=== PATIENT | female | born 1950 | race Caucasian/White ===

== ENCOUNTER 2021-09-16 06:16 | Emergency (ER) | payer OTHER, SELFPAY ==
[2021-09-16 06:31] VITALS: BP 149/74; PULSE 67; RESP 18; TEMP 36.7; O2SAT 100; BMI 23.4
--- NOTE | 2021-09-16 06:40 | DI.RAD.S_ITS ---
PROCEDURE: XR RIBS LT MIN 3V W CXR1V INDICATIONS: pain TECHNIQUE: 2 views of the left ribs were acquired, along with a single view chest. COMPARISON: None. FINDINGS: Surgical changes and devices: None. Bones and chest wall: No fractures or dislocations. No suspicious bony lesions. Overlying soft tissues appear unremarkable. Lungs and pleura: No pleural effusions or pneumothorax. Lungs appear clear. Mediastinum: Mediastinal contours appear normal. Heart size is normal. IMPRESSION: No displaced rib fractures. Dictated by: Yandy Hernandez M.D. on 09/16/2021 at 8:52 Approved by: Yandy Hernandez M.D. on 09/16/2021 at 8:53
[2021-09-16 06:42] VITALS: PULSE 71; RESP 26; O2SAT 100
--- NOTE | 2021-09-16 06:46 | DI.CT.S_ITS ---
PROCEDURE: CT KIDNEY URETER BLADDER (KUB) INDICATIONS: pain left TECHNIQUE: Axial sections were acquired from the lung bases to the pubic symphysis. Coronal and sagittal reformats were performed. For radiation dose reduction, the following was used: automated exposure control, adjustment of mA and/or kV according to patient size. COMPARISON: None. FINDINGS: Image quality: Excellent. Lung bases: There is mild platelike atelectasis at the left lung base. Heart: No significant findings. URINARY: Right Kidney: No stones or hydronephrosis. Right Ureter: No hydroureter. Left Kidney: There is mild left pelviectasis. No hydronephrosis. No perinephric fat stranding. Left Ureter: No hydroureter. Bladder calculi. ABDOMEN: Liver: Unremarkable. Gallbladder: Unremarkable. Biliary ducts: Unremarkable. Pancreas: Unremarkable. Spleen: Unremarkable. Adrenal Glands: Unremarkable. Stomach and Bowel: Stomach, small bowel loops, and colon are unremarkable. The appendix is not visualized; however there is no discrete right lower quadrant fluid or fat stranding to suggest acute appendicitis. Peritoneum: No abnormal intraperitoneal fluid. No free air. Ventral Wall: No hernia. Abdominal Nodes: No enlarged retroperitoneal or mesenteric lymph nodes. Vessels: Aorta and inferior vena cava are normal in size. PELVIS: Pelvic Organs: Unremarkable. Pelvic Nodes: Unremarkable. Miscellaneous: No inguinal hernias are seen. Bones: Unremarkable. IMPRESSION: 1. Mild left pelviectasis without discrete hydronephrosis, hydroureter, nephrolithiasis, or ureterolithiasis. No bladder calculi visualized to suggest recently passed stone. The bladder is markedly distended with urine. Bladder outlet obstruction cannot be excluded. Dictated by: Martha Garner M.D. on 09/16/2021 at 8:17 Approved by: Martha Garner M.D. on 09/16/2021 at 8:25
[2021-09-16 06:49] LABS: Add Manual Diff / Slide Review NO; Basophils Absolute Auto 0 /uL (0-100); Basophils Percent Auto 0.9 % (0-2); Eosinophils Absolute Auto 300 /uL (0-450); Eosinophils Percent Auto 7.5 % (2-4); Hemoglobin 13.3 g/dL (12.0-16.0); Lymphocytes Absolute Auto 1700 /uL (1100-4500); Lymphocytes Percent Auto 37.3 % (25-40); Mean Corpuscular HGB Conc 33.2 % (30-36); Mean Corpuscular Hemoglobin 29.5 PG (26-34); Mean Corpuscular Volume 88.8 fL (80-100); Monocytes Absolute Auto 400 /uL (0-900); Monocytes Percent Auto 9.2 % (3-14); Neutrophils Absolute Auto 2000 /uL (1500-7000); Neutrophils Percent Auto 45.1 % (50-75); Platelet Count 274 X10^3/uL (150-400); Red Blood Cell Count 4.51 X10^6/uL (4.0-5.2); Red Cell Distribution Width 13.6 % (11.6-14.8); White Blood Cell Count 4.5 X10^3/uL (4.5-11.0)
--- NOTE | 2021-09-16 06:52 | ED.CHESTPAIN ---
HPI - Chest Pain <Carey Powers DO - Last Filed: 09/16/21 23:01> General Chief Complaint: Chest Pain Stated Complaint: Pain left side under rib cage Time Seen by Provider: 09/16/21 06:30 Source: patient Mode of arrival: Ambulatory Limitations: no limitations History of Present Illness HPI narrative: The patient is a 71-year-old female history of hyperlipidemia presenting with left-sided flank pain. She noticed it 2 days ago. She says it hurts so bad to sleep in a rollover at night. She denies any injury. The pain is not radiating around to her abdomen. She has no nausea or vomiting. Pain is not going down into her leg. She really does not have any chest pain or discomfort. There is a pinpoint area of pain. She has not taken anything at home for pain. She denies any painful or frequent urination. No hematuria. Related Data Previous Rx's Medication Instructions Recorded oxycodone-acetaminophen 5 mg-325 1 tab PO Q6H PRN pain #14 tabs 09/16/21 mg tablet Review of Systems <Carey Powers DO - Last Filed: 09/16/21 23:01> Review of Systems Narrative: GENERAL: Denies chills, fatigue, malaise, fever, sweats, travel HEENT: Denies sinus pain, ear pain, sore throat, difficulty swallowing, neck pain RESPIRATORY: Denies dyspnea, cough, wheezing, hemoptysis, sputum. CARDIOVASCULAR: Denies chest pain, palpitations, orthopnea, edema GASTROINTESTINAL: See HPI : Denies dysuria, frequency, incontinence, hematuria, urinary retention, flank pain. MUSCULOSKELETAL: Denies weakness, joint pain, or bony pain SKIN: No rash, no erythema, no pruritus NEUROLOGIC: Denies weakness, dizziness, headache, numbness, change in speech, confusion PSYCHIATRIC: No concerning psychosocial issues. 12 point review of systems is negative except for those stated above and HPI Patient History <DO Sophie Shaw Last Filed: 09/16/21 23:01> Social History Smoking Status: Former smoker Smoking Status: Former smoker alcohol intake frequency: 0-2 drinks per day Alcohol type: wine Substance Use Type: does not use Exam <DO Sophie Shaw Last Filed: 09/16/21 23:01> Initial Vital Signs Initial Vital Signs: Vital Signs Temperature 98.1 F 09/16/21 06:31 Pulse Rate 67 09/16/21 06:31 Respiratory Rate 18 09/16/21 06:31 Blood Pressure 149/74 H 09/16/21 06:31 Pulse Oximetry 100 09/16/21 06:31 Oxygen Delivery Method 09/16/21 06:31 GENERAL: Alert 71-year-old female appears uncomfortable. HEENT: Head atraumatic,EOMI, pupils reactive, face symmetric, moist mucous membranes CARDIOVASCULAR: Regular rate and rhythm without murmurs, rubs or gallops. RESPIRATORY: Breath sounds equal bilaterally, no wheezes rales or rhonchi. ABDOMEN: Soft, nontender. Normoactive bowel sounds all 4 quadrants. No guarding or rebound. RECTAL: Hemoccult-positive, no hemorrhoids, nontender : Pain left side in point to touch no sign of trauma or injury CVA tenderness EXTREMITIES: Normal range of motion, no clubbing or edema. Neurovascularly intact NEUROLOGICAL: Alert and oriented x4.Normal gait and speech. SKIN: Warm, dry, no laceration, no petechiae, no rashes or lesions. <Khadra Reardon MD - Last Filed: 09/16/21 09:07> Initial Vital Signs Initial Vital Signs: Vital Signs Temperature 98.1 F 09/16/21 06:31 Pulse Rate 67 09/16/21 06:31 Respiratory Rate 18 09/16/21 06:31 Blood Pressure 149/74 H 09/16/21 06:31 Pulse Oximetry 100 09/16/21 06:31 Oxygen Delivery Method 09/16/21 06:31 Course <Carey Powers DO - Last Filed: 09/16/21 23:01> Orders Ordered: Discontinued Medications Ketorolac Tromethamine (Ketorolac 30 Mg/Ml Vial) 15 mg IV NOW ONE Stop: 09/16/21 06:41 Last Admin: 09/16/21 06:57 Dose: 15 mg Documented By: EB Vital Signs Vital signs: Vital Signs - 8 hr 09/16/21 06:31 09/16/21 06:42 09/16/21 07:00 Temperature 98.1 F Pulse Rate 67 71 69 Respiratory Rate 18 26 H Blood Pressure 149/74 H Pulse Oximetry 100 100 100 Oxygen Delivery Method Room Air 09/16/21 07:30 Temperature Pulse Rate 60 Respiratory Rate 12 Blood Pressure Pulse Oximetry 99 Oxygen Delivery Method <Khadra Reardon MD - Last Filed: 09/16/21 09:07> Orders Ordered: Discontinued Medications Ketorolac Tromethamine (Ketorolac 30 Mg/Ml Vial) 15 mg IV NOW ONE Stop: 09/16/21 06:41 Last Admin: 09/16/21 06:57 Dose: 15 mg Documented By: EB Vital Signs Vital signs: Vital Signs - 8 hr 09/16/21 06:31 09/16/21 06:42 09/16/21 07:00 Temperature 98.1 F Pulse Rate 67 71 69 Respiratory Rate 18 26 H Blood Pressure 149/74 H Pulse Oximetry 100 100 100 Oxygen Delivery Method Room Air 09/16/21 07:30 Temperature Pulse Rate 60 Respiratory Rate 12 Blood Pressure Pulse Oximetry 99 Oxygen Delivery Method MDM - Chest Pain <Carey Powers DO - Last Filed: 09/16/21 23:01> Lab Data Result diagrams: 09/16/21 06:35 09/16/21 06:35 Labs: Lab Results 09/16/21 09/16/21 Range/Units 06:35 06:35 WBC 4.5 (4.5-11.0) X10^3/uL RBC 4.51 (4.0-5.2) X10^6/uL Hgb 13.3 (12.0-16.0) g/dL Hct 40.0 (36-46) % MCV 88.8 (80-100) fL MCH 29.5 (26-34) PG MCHC 33.2 (30-36) % RDW 13.6 (11.6-14.8) % Plt Count 274 (150-400) X10^3/uL Neut % (Auto) 45.1 L (50-75) % Lymph % (Auto) 37.3 (25-40) % [place] % (Auto) 9.2 (3-14) % Eos % (Auto) 7.5 H (2-4) % Baso % (Auto) 0.9 (0-2) % Neut # (Auto) 2000 (6499-0360) /uL Lymph # (Auto) 1700 (6865-7168) /uL [place] # (Auto) 400 (0-900) /uL Eos # (Auto) 300 (0-450) /uL Baso # (Auto) 0 (0-100) /uL Sodium 139 (137-145) mmol/L Potassium 4.1 (3.4-5.1) mmol/L Chloride 109 H (98-107) mmol/L Carbon Dioxide 26 (22-32) mmol/L BUN 14 (7-17) mg/dL Creatinine 0.62 (0.52-1.04) mg/dL Estimated GFR > 60 (>60) mL/min BUN/Creatinine Ratio 22.6 H (6-22) Glucose 86 (80-110) mg/dL Calcium 9.0 (8.4-10.2) mg/dL Total Bilirubin 0.7 (0.2-1.3) mg/dL AST 31 (14-36) IU/L ALT 21 (<35) IU/L Alkaline Phosphatase 57 (38-126) U/L Total Creatine Kinase 80 (30-135) U/L CK-MB (CK-2) TNP CK-MB (CK-2) Rel Index TNP Troponin I < 0.012 (0.01-0.034) ng/mL Total Protein 7.0 (6.3-8.2) g/dL Albumin 4.2 (3.5-5.0) g/dL Globulin 2.8 (1.7-4.1) g/dL Albumin/Globulin Ratio 1.5 (1.0-2.8) Lipase 105 (23-300) U/L ECG Data Interpretation: Normal sinus rhythm rate 68 CA interval 144 QRS [address] changes PVC noted, no priors to compare MDM Narrative Medical decision making narrative: Initially started evaluation blood work and CT are pending. Patient signed out to Dr. Reardon Patient seen is evaluated. Labs and studies reviewed. CT scan of the abdomen does not suggest any acute abnormalities for her right flank pain. Specifically no bowel obstruction, renal or collecting system abnormalities, no appendicitis. There is not appear to be any pulmonary, rib or cardiac etiology to the pain that she is noticing. Patient is independently evaluated. Heart and lungs are unremarkable. She does not have any paraspinous tenderness or midline spine tenderness to suggest that this is disc related or pinched nerve. With the way that she is easily moving I am less suspicious of acute musculoskeletal explanations.. Her left flank pain seems very dermatomal. Careful skin exam does not reveal any rash to suggest shingles however this could absolutely be a shingles prodrome. She has had a shingles vaccine. Carefully reviewed expectations and findings should this develop. At this point I think it is safe to simply treat her pain and she is safe to return home. <Khadra Reardon MD - Last Filed: 09/16/21 09:07> Lab Data Labs: Lab Results 09/16/21 09/16/21 Range/Units 06:35 06:35 WBC 4.5 (4.5-11.0) X10^3/uL RBC 4.51 (4.0-5.2) X10^6/uL Hgb 13.3 (12.0-16.0) g/dL Hct 40.0 (36-46) % MCV 88.8 (80-100) fL MCH 29.5 (26-34) PG MCHC 33.2 (30-36) % RDW 13.6 (11.6-14.8) % Plt Count 274 (150-400) X10^3/uL Neut % (Auto) 45.1 L (50-75) % Lymph % (Auto) 37.3 (25-40) % [place] % (Auto) 9.2 (3-14) % Eos % (Auto) 7.5 H (2-4) % Baso % (Auto) 0.9 (0-2) % Neut # (Auto) 2000 (4424-4534) /uL Lymph # (Auto) 1700 (5024-3569) /uL [place] # (Auto) 400 (0-900) /uL Eos # (Auto) 300 (0-450) /uL Baso # (Auto) 0 (0-100) /uL Sodium 139 (137-145) mmol/L Potassium 4.1 (3.4-5.1) mmol/L Chloride 109 H (98-107) mmol/L Carbon Dioxide 26 (22-32) mmol/L BUN 14 (7-17) mg/dL Creatinine 0.62 (0.52-1.04) mg/dL Estimated GFR > 60 (>60) mL/min BUN/Creatinine Ratio 22.6 H (6-22) Glucose 86 (80-110) mg/dL Calcium 9.0 (8.4-10.2) mg/dL Total Bilirubin 0.7 (0.2-1.3) mg/dL AST 31 (14-36) IU/L ALT 21 (<35) IU/L Alkaline Phosphatase 57 (38-126) U/L Total Creatine Kinase 80 (30-135) U/L CK-MB (CK-2) TNP CK-MB (CK-2) Rel Index TNP Troponin I < 0.012 (0.01-0.034) ng/mL Total Protein 7.0 (6.3-8.2) g/dL Albumin 4.2 (3.5-5.0) g/dL Globulin 2.8 (1.7-4.1) g/dL Albumin/Globulin Ratio 1.5 (1.0-2.8) Lipase 105 (23-300) U/L Imaging Data CT scan - abdomen/pelvis: Radiologist's Impression: FINDINGS:? Image quality:? Excellent.? ? Lung bases:? There is mild platelike atelectasis at the left lung base. Heart:? No significant findings. ? URINARY: Right Kidney: ? No stones or hydronephrosis.? Right Ureter:? No hydroureter.? ? Left Kidney: ? There is mild left pelviectasis.? No hydronephrosis.? No perinephric fat stranding. Left Ureter:? No hydroureter.? ? Bladder calculi. ? ABDOMEN: Liver:? Unremarkable.? ? Gallbladder:? Unremarkable.? ? Biliary ducts:? Unremarkable.? ? Pancreas:? Unremarkable.? ? Spleen:? Unremarkable.? ? Adrenal Glands:? Unremarkable.? ? ? Stomach and Bowel:? Stomach, small bowel loops, and colon are unremarkable.? The appendix is not visualized; however there is no discrete right lower quadrant fluid or fat stranding to suggest acute appendicitis. Peritoneum:? No abnormal intraperitoneal fluid.? No free air.? ? Ventral Wall: ? No hernia.? Abdominal Nodes:? No enlarged retroperitoneal or mesenteric lymph nodes.? Vessels:? Aorta and inferior vena cava are normal in size.? ? PELVIS: Pelvic Organs:? Unremarkable.? ? Pelvic Nodes: Unremarkable. Miscellaneous: No inguinal hernias are seen. ? ? ? Bones:? Unremarkable. ? IMPRESSION:? ? 1. Mild left pelviectasis without discrete hydronephrosis, hydroureter, nephrolithiasis, or ureterolithiasis.? No bladder calculi visualized to suggest recently passed stone.? The bladder is markedly distended with urine.? Bladder outlet obstruction cannot be excluded. ? Dictated by: Martha Garner M.D. on 09/16/2021 at 8:17? ?? MDM Narrative Medical decision making narrative: Patient signed out to Dr. Reardon Patient seen is evaluated. Labs and studies reviewed. CT scan of the abdomen does not suggest any acute abnormalities for her right flank pain. Specifically no bowel obstruction, renal or collecting system abnormalities, no appendicitis. There is not appear to be any pulmonary, rib or cardiac etiology to the pain that she is noticing. Patient is independently evaluated. Heart and lungs are unremarkable. She does not have any paraspinous tenderness or midline spine tenderness to suggest that this is disc related or pinched nerve. With the way that she is easily moving I am less suspicious of acute musculoskeletal explanations.. Her left flank pain seems very dermatomal. Careful skin exam does not reveal any rash to suggest shingles however this could absolutely be a shingles prodrome. She has had a shingles vaccine. Carefully reviewed expectations and findings should this develop. At this point I think it is safe to simply treat her pain and she is safe to return home. Discharge Plan Departure Patient Disposition: Home Clinical Impression: Acute left flank pain Instructions: DI for Shingles Activity Restrictions/Additional Instructions: Thank you for coming in today Your exam does not show any acute abnormalities. I am not seeing any evidence of infection, this does not look like a simple musculoskeletal back strain. CT scan does not suggest lower lung abnormalities, cardiac abnormalities, kidney or kidney collecting system abnormalities such as kidney stones. You do not have a kidney infection nor appendicitis. The possibility of shingles is certainly there. The distribution of your pain suggests shingles. Sometimes people have a pain prodrome for number of days prior to a shingles rash developing. I have given you information on shingles and if you do notice a rash developing in this area of pain, please contact your primary care provider for antiviral therapy. In the meantime, using 1-2 Percocet for severe pain will be safe for the next couple of days. [facility] in [place], a 1 by myron cardenas. If you find that you are getting worse or develop any new symptoms, please feel free to return to the emergency department for further evaluation. Prescriptions: New oxycodone-acetaminophen 5-325 mg tablet 1 tab PO Q6H PRN (Reason: pain) Qty: 14 0RF Visit Report Forms: Patient Portal/API
[2021-09-16] MEDS: KETOROLAC 30 MG/ML VIAL 15 MG IV (06:57)
[2021-09-16 07:00] VITALS: PULSE 69; O2SAT 100
[2021-09-16 07:01] LABS: Alanine Aminotransferase 21 IU/L (<35); Albumin 4.2 g/dL (3.5-5.0); Albumin Globulin Ratio 1.5 (1.0-2.8); Alkaline Phosphatase 57 U/L (38-126); Aspartate Aminotransferase 31 IU/L (14-36); BUN Creatinine Ratio 22.6 (6-22); Bilirubin Total 0.7 mg/dL (0.2-1.3); Blood Urea Nitrogen 14 mg/dL (7-17); Carbon Dioxide 26 mmol/L (22-32); Chloride 109 mmol/L (98-107); Creatine Kinase 80 U/L (30-135); Estimated Glomerular Filt Rate > 60 mL/min (>60); Globulin 2.8 g/dL (1.7-4.1); Glucose 86 mg/dL (80-110); HEMOLYSIS 17 (0-50); Lipase 105 U/L (23-300); Potassium 4.1 mmol/L (3.4-5.1); Sodium 139 mmol/L (137-145)
[2021-09-16 07:13] LABS: Troponin I < 0.012 ng/mL (0.01-0.034)
[2021-09-16 07:30] VITALS: PULSE 60; RESP 12; O2SAT 99
[2021-09-16 09:17] VITALS: O2SAT 100
[2021-09-16 09:18] VITALS: BP 161/78; O2SAT 100
== END 2021-09-16 09:22 | disposition home or self-care (01) ==
PROVIDERS: Emergency Medicine; Emergency Provider Emergency Medicine
DX: R10.9 Unspecified abdominal pain (principal); R21 Rash and other nonspecific skin eruption
CPT/HCPCS: 71101; 74176; 80053; 82550; 83690; 84484; 85025; 93005; 96374; 99283; 99284; J1885